=== PATIENT | female | born 1960 | race Caucasian/White ===

== ENCOUNTER 2021-02-16 12:40 | Outpatient (CLI) | payer BC, SELFPAY ==
--- NOTE | 2021-02-16 12:52 | MM_ITS ---
WS: [id number] BILATERAL DIGITAL SCREENING MAMMOGRAPHY WITH CAD CLINICAL INFORMATION: SCREEN HISTORY: Screening mammogram. No current complaints. COMPARISON: February 15, 2020 TECHNIQUE: Bilateral CC and MLO views. FINDINGS: The breasts are composed of heterogeneous fibroglandular density tissue, which can limit the detectio n of small underlying mass lesions. A few tiny stable punctate calcifications. No suspicious mass, as ymmetry, calcifications, or architectural distortion. No evidence of malignancy. MM/[place] [id number] IMPRESSION: BI-RADS: 2-Benign FOLLOW UP: 1 Year Follow-up Recommend return to annual screening mammography.
== END 2021-02-16 12:41 | disposition home or self-care (01) ==
LOC: RADSHAW 12:44
PROVIDERS: PCP Family Medicine; Visit Provider Family Medicine
DX: Z12.31 Encounter for screening mammogram for malignant neoplasm of breast (principal)
CPT/HCPCS: 77067

== ENCOUNTER 2022-04-24 14:09 | Outpatient (CLI) | payer BC, SELFPAY ==
--- NOTE | 2022-04-24 14:21 | MM_ITS ---
WS: [id number] BILATERAL 3D TOMOSYNTHESIS DIGITAL SCREENING MAMMOGRAPHY WITH CAD CLINICAL INFORMATION: SCREENING HISTORY: Screening mammogram. No current complaints. COMPARISON: 2020 TECHNIQUE: Bilateral CC and MLO views. FINDINGS: The breasts are composed of heterogeneous fibroglandular density tissue, which can limit the detectio n of small underlying mass lesions. No suspicious mass, asymmetry, calcifications, or architectural d istortion. No evidence of malignancy. Incidental punctate calcifications. Vascular calcification. MM/[place] [id number] IMPRESSION: BI-RADS: 2-Benign FOLLOW UP: 1 Year Follow-up Recommend return to annual screening mammography.
--- NOTE | 2022-04-24 14:28 | XR_ITS ---
WS: [id number] DEXA (DUAL ENERGY X-RAY ABSORPTIOMETRY) Bone mineral density was performed using a [id number] machine. HISTORY: BONE DENSITY COMPARISON: None available. Lumbar spine BMD (L1-L4): 0.959 g/cm2 T score: -1.8 Z score: -0.4 Total hip BMD: Left: 0.834 g/cm2. T score: -1.4 Z score: -0.3 Right: 0.809 g/cm2. T score: -1.6 Z score: -0.5 10 year probability of a major osteoporotic fracture is 9.4%. XR/XR DEXA axial skeleton* [id number] IMPRESSION: OSTEOPENIA based upon the WHO classification for females.
== END 2022-04-24 14:10 | disposition home or self-care (01) ==
LOC: RAD 14:10
PROVIDERS: PCP Family Medicine; Visit Provider Family Medicine
DX: Z12.31 Encounter for screening mammogram for malignant neoplasm of breast (principal); M81.0 Age-related osteoporosis without current pathological fracture
CPT/HCPCS: 77063; 77067; 77080

== ENCOUNTER 2022-08-06 07:23 | Outpatient (CLI) | payer BC, SELFPAY ==
--- NOTE | 2022-08-06 07:55 | US_ITS ---
WS: [id number] RENAL ULTRASOUND HISTORY: STAGE 3A CHRONIC KIDNEY DZ COMPARISON: None available. TECHNIQUE: 2-D and color Doppler imaging of the kidney submitted. Right kidney: 9.2 cm x 5.0 cm x 4.1 cm. Cortex: 1.0 cm Normal echogenicity with no hydronephrosis or mass. Left kidney: 9.2 cm x 3.9 cm x 4.5 cm. Cortex: 1.2 cm Normal echogenicity with no hydronephrosis or mass. Aorta: Normal. Urinary Bladder: Normal distention. US/US renal BI* [id number] IMPRESSION: 1. Normal size kidneys. No renal atrophy. 2. No hydronephrosis.
== END 2022-08-06 07:24 | disposition home or self-care (01) ==
LOC: RAD 07:27
PROVIDERS: PCP Family Medicine; Visit Provider Internal Medicine Nephrology
DX: N18.31 Chronic kidney disease, stage 3a (principal)
CPT/HCPCS: 76770

== ENCOUNTER 2023-03-08 14:10 | Emergency (ER) | payer BC, SELFPAY ==
[2023-03-08 14:53] VITALS: BP 122/83; PULSE 70; RESP 18; TEMP 36.3; O2SAT 98; BMI 26.4
[2023-03-08 15:23] LABS: Basophils # 0.1 10^3/uL (0.0-0.1); Basophils % 0.5 %; Eosinophils # 0.1 10^3/uL (0.0-0.8); Eosinophils % 0.9 %; Hematocrit 38.7 % (36-47); Lymphocytes # 2.1 10^3/uL (0.8-4.8); Lymphocytes % 15.8 %; Mean Corpuscular HGB Conc 32.3 g/dL (30-55); Mean Corpuscular Hemoglobin 30.4 pg (27-33); Mean Corpuscular Volume 94.2 fl (85-98); Mean Platelet Volume 11.7 fL (7.4-10.4); Monocytes # 0.9 10^3/uL (0.2-0.9); Monocytes % 6.6 %; Neutrophils # 9.89 10^3/uL (1.8-7.7); Neutrophils % 75.7 %; Nucleated Red Blood Cells % 0 %; Platelet Count 224 10^3/cmm (157-399); Red Blood Count 4.11 10^6/uL (3.85-5.65); Red Cell Distribution Width 13.5 % (12.1-15.1); White Blood Count 13.05 10^3/uL (3.29-11.43)
[2023-03-08 15:43] LABS: Alanine Aminotransferase 34 U/L (0-33); Albumin Level 4.2 g/dL (3.5-5.2); Alkaline Phosphatase 79 U/L (35-105); Anion Gap 15.7 (5-19); Aspartate Amino Transferase 23 U/L (0-32); Blood Urea Nitrogen 21 mg/dL (8-23); Calcium 10.6 mg/dL (8.5-10.5); Carbon Dioxide 26 mmol/L (22-29); Chloride 101 mmol/L (98-107); Glomerular Filtration Rate 38.1 mL/min (90-130); Glucose 125 mg/dL (65-115); Lipase 88 U/L (13-60); Osmolality Calculated 292 mOsm/kg (285-295); Potassium 3.7 mmol/L (3.5-5.1); Sodium 139 mmol/L (136-145); Total Bilirubin 0.4 mg/dL (0.15-1.2); Total Protein 7.2 g/dL (6.6-8.7)
--- NOTE | 2023-03-08 20:03 | XRR_ITS ---
PROCEDURE INFORMATION: Exam: XR Abdomen Exam date and time: 03/08/2023 8:10 PM Age: 62 years old Clinical indication: Nausea and vomiting; Abdominal pain; Localized; Prior surgery; Surgery date: 6+ months; Surgery type: Hysterectomy; Patient HX: C/O lower abd pain with n/v. TECHNIQUE: Imaging protocol: Radiologic exam of the abdomen. Views: Frontal supine view of the abdomen. 1 View. COMPARISON: US renal BI* [id number] 08/06/2022 8:10 AM FINDINGS: Gastrointestinal tract: No dilated loops of bowel. [id number] colonic stool burden. Bones/joints: No acute abnormality. XR/XR KUB portable [id number] IMPRESSION: No dilated loops of bowel.
--- NOTE | 2023-03-08 20:38 | W.ED.ABDPA2 ---
HPI - Abdominal Pain General: Chief Complaint: Abdominal Pain Stated Complaint: abd pain Time Seen by Provider: 03/08/23 19:52 History of Present Illness: 62-year-old female with a history of IBS. She presents with abdominal pain and cramping much worse than her normal. Symptoms started this morning. They have since essentially resolved. No fever. No vomiting. She had some nausea which is also resolved. She was able to use the restroom several times in the waiting room, which she believes led to the resolution of her symptoms. No sick contacts. No blood in the stool. Associated Symptoms: Denies chills, fever(s), hematochezia and vomiting Review of Systems Const: Denies: fever(s), chills or body aches Eyes: Denies: change in vision Card: Denies: chest pain or palpitations Resp: Denies: dyspnea, productive cough, non-productive cough or wheezing GI: Denies: vomiting or hematochezia : Denies: difficulty voiding Skin/Breast: Denies: rash Neuro: Denies: headache(s), weakness in extremities, dizziness or confusion Physical Exam Const: COMMON NORMALS: no acute distress GENERAL APPEARANCE: cooperative; not ill appearing and not frail appearing HENMT: COMMON NORMALS: normocephalic, atraumatic and Normal external nose present HEAD & SCALP: normocephalic and atraumatic FACE & SINUS: normal facial exam and face symmetric NOSE: Normal external nose present Eye: COMMON NORMALS: Equal, round and reactive pupils present and EOMs intact bilaterally PUPIL: Yes Equal, round and reactive pupils present Neck/C-Spine: GENERAL: Yes trachea midline Chest: CHEST: Yes Symmetrical chest wall rise Resp: COMMON NORMALS: normal respiratory effort, No retractions, No use of accessory muscles and clear to auscultation bilaterally AUSCULTATION: clear to auscultation bilaterally Cardio: COMMON NORMALS: regular rate and regular rhythm RATE: regular rate RHYTHM: regular rhythm GI: COMMON NORMALS: Normal to inspection, nondistended, normoactive bowel sounds present Extremity: COMMON NORMALS: no pedal edema Neuro: JORGE A COMA SCALE: document GCS findings [place] coma scale eye opening: Spontaneous [place] coma scale verbal response: Orientated [place] coma scale motor response: Obey commands Jorge A coma scale total score: 15 SENSORY EXAM: Yes extremities (intact) Psych: COMMON NORMALS: speech normal SPEECH: Yes normal speech Skin: COMMON NORMALS: no rashes or lesions noted GENERAL SKIN EXAM: no rashes or lesions noted Course Vital Signs: Vital signs: Vital Signs Temperature 97.3 F L 03/08/23 14:53 Pulse Rate 74 03/08/23 21:49 Respiratory Rate 16 03/08/23 21:49 Blood Pressure 122/83 03/08/23 14:53 Pulse Oximetry 98 03/08/23 21:49 Oxygen Delivery Me thod Room Air 03/08/23 14:53 MDM - Abdominal Pain Medical Decision Making 62-year-old female with resolved belly pain. White blood cell count is 13 without left shift. Creatinine is 1.4 which is a chronic finding for her. Lipase is 88. Her belly is nontender. She has no distention, rigidity, or bed shake tenderness.KUB shows no obstruction. Awaiting urinalysis. Urinalysis shows mild urinary tract infection. Will elect to go ahead and treat. Will use Macrobid, so has not to increased risk for antibiotic associated diarrhea given other complaints. Uncertain whether this urinalysis finding has bearing on her presenting complaint, as it seems to be resolved. Close outpatient follow-up. Return for any worsening symptoms. Lab Data 03/08/23 15:12 03/08/23 15:12 Labs/Radiology: Radiology Impressions KUB X-Ray 03/08/23 20:03 IMPRESSION: No dilated loops of bowel. Laboratory Results WBC 13.05 10^3/uL (3.29-11.43) H 03/08/23 15:12 RBC 4.11 10^6/uL (3.85-5.65) 03/08/23 15:12 Hgb 12.50 g/dL (11.27-16.99) 03/08/23 15:12 Hct 38.7 % (36-47) 03/08/23 15:12 MCV 94.2 fl (85-98) 03/08/23 15:12 MCH 30.4 pg (27-33) 03/08/23 15:12 MCHC 32.3 g/dL (30-55) 03/08/23 15:12 RDW 13.5 % (12.1-15.1) 03/08/23 15:12 Plt Count 224 10^3/cmm (157-399) 03/08/23 15:12 MPV 11.7 fL (7.4-10.4) H 03/08/23 15:12 Neut % (Auto) 75.7 % 03/08/23 15:12 Lymph % (Auto) 15.8 % 03/08/23 15:12 [place] % (Auto) 6.6 % 03/08/23 15:12 Eos % (Auto) 0.9 % 03/08/23 15:12 Baso % (Auto) 0.5 % 03/08/23 15:12 Neut # (Auto) 9.89 10^3/uL (1.8-7.7) H 03/08/23 15:12 Lymph # (Auto) 2.1 10^3/uL (0.8-4.8) 03/08/23 15:12 [place] # (Auto) 0.9 10^3/uL (0.2-0.9) 03/08/23 15:12 Eos # (Auto) 0.1 10^3/uL (0.0-0.8) 03/08/23 15:12 Baso # (Auto) 0.1 10^3/uL (0.0-0.1) 03/08/23 15:12 Nucleated RBC % (auto) 0 % 03/08/23 15:12 Nucleated RBCs # 0.0 /100WBC 03/08/23 15:12 Sodium 139 mmol/L (136-145) 03/08/23 15:12 Potassium 3.7 mmol/L (3.5-5.1) 03/08/23 15:12 Chloride 101 mmol/L (98-107) 03/08/23 15:12 Carbon Dioxide 26 mmol/L (22-29) 03/08/23 15:12 Anion Gap 15.7 (5-19) 03/08/23 15:12 BUN 21 mg/dL (8-23) 03/08/23 15:12 Creatinine 1.4 mg/dL (0.5-0.9) H 03/08/23 15:12 GFR Calculation 38.1 mL/min (90-130) L 03/08/23 15:12 Glucose 125 mg/dL (65-115) H 03/08/23 15:12 Calculated Osmolality 292 mOsm/kg (285-295) 03/08/23 15:12 Calcium 10.6 mg/dL (8.5-10.5) H 03/08/23 15:12 Total Bilirubin 0.4 mg/dL (0.15-1.2) 03/08/23 15:12 AST 23 U/L (0-32) 03/08/23 15:12 ALT 34 U/L (0-33) H 03/08/23 15:12 Alkaline Phosphatase 79 U/L (35-105) 03/08/23 15:12 Total Protein 7.2 g/dL (6.6-8.7) 03/08/23 15:12 Albumin 4.2 g/dL (3.5-5.2) 03/08/23 15:12 Globulin 3.0 g/dL (1.3-4.6) 03/08/23 15:12 Lipase 88 U/L (13-60) H 03/08/23 15:12 Urine Color Yellow (Yellow) 03/08/23 20:37 Urine Appearance Hazy (CLEAR) A 03/08/23 20:37 Urine pH 7 (5-7) 03/08/23 20:37 Ur Specific [place] 1.015 (1.005-1.030) 03/08/23 20:37 Urine Protein Trace (Negative) 03/08/23 20:37 Urine Glucose (UA) Norm (Normal) 03/08/23 20:37 Urine Ketones Negative (Negative) 03/08/23 20:37 Urine Blood Neg (Negative) 03/08/23 20:37 Urine Nitrate Negative (Negative) 03/08/23 20:37 Urine Bilirubin Neg (Negative) 03/08/23 20:37 Urine Urobilinogen Neg mg/dL (Negative) 03/08/23 20:37 Ur Leukocyte Esterase 2+ (Negative) H 03/08/23 20:37 Urine RBC 0-4 /hpf (0-2) H 03/08/23 20:37 Urine WBC 5-10 /hpf (0-5) H 03/08/23 20:37 Ur Squamous Epith Cells Rare /hpf (0-5) 03/08/23 20:37 Amorphous Sediment 3+ /hpf 03/08/23 20:37 Urine Bacteria Trace /hpf (NONE) 03/08/23 20:37 All radiology interpretation(s) finalized by discharge Discharge Plan Discharge Patient Disposition: Home Clinical Impression: Abdominal pain, UTI (urinary tract infection) Condition: Stable Prescriptions: New Macrobid 100 mg capsule 100 mg PO BID 7 Days Qty: 14 0RF Rx Instructions: must administer with a meal/food Discharge Orders: Discharge ED (Routine); Ordered 03/08/23 Ordered By: Kwan Rodriguez Referrals: Christina Archer DO [Primary Care Provider] - 1-3 days Patient Instructions: Urinary Tract Infection in Women (ED), Abdominal Pain (ED), Opioid Safety, Pain Management Activity Restrictions/Additional Instructions: Return for return of pain, blood in the stool, excessive diarrhea, vomiting liquids, other concerning symptoms. Medication as directed. See your doctor next week. You should have a repeat urine test next week to determine that infection has been eradicated. Coding Level of Care Code ED Shredded Filler Cutter Operator for Howard Miranda
[2023-03-08 21:03] LABS: Add Urine Microscopic? YES; Bilirubin Urine Neg (Negative); Blood Urine Neg (Negative); Glucose Urine UA Norm (Normal); Ketones Urine Negative (Negative); Leukocyte Esterase Urine 2+ (Negative); Nitrate Urine Negative (Negative); Protein Urine Trace (Negative); Specific Gravity, Urine 1.015 (1.005-1.030); Urine Appearance Hazy (CLEAR); Urine Color Yellow (Yellow); Urobilinogen Urine Neg (Negative); pH Urine 7 (5-7)
[2023-03-08 21:04] LABS: Add Urine Culture? No; Amorphous Sediment Urine 3+ /hpf; Bacteria Urine TRACE /hpf; RBC Urine 0-4 /hpf (0-2); Squamous Epithelial Cell Urine RARE /hpf (0-5)
[2023-03-08] MEDS: nitrofurantoin SR (BID) 100 mg Capsule PO (21:45)
[2023-03-08 21:49] VITALS: PULSE 74; RESP 16; O2SAT 98
== END 2023-03-08 21:47 | disposition home or self-care (01) ==
PROVIDERS: Nurse Practitioner Family; Emergency Provider Emergency Medicine; PCP Family Medicine
DX: N39.0 Urinary tract infection, site not specified (principal)
CPT/HCPCS: 74018; 80053; 81001; 83690; 85025; 99284

== ENCOUNTER 2023-06-04 08:41 | Outpatient (CLI) | payer BC, SELFPAY ==
--- NOTE | 2023-06-04 08:43 | MM_ITS ---
WS: [email or web address] VIEWS: MLO and CC views both breasts. 3D digital tomosynthesis is also included in this exam. Comparison made with prior exam of 01/25/2015, 02/07/2016, 02/16/2021, 04/24/2022.. Findings: There was no sign of mass, architectural distortion or suspicious calcification in either breast. The breasts are heterogeneously dense which may obscure small masses Impression: MM/[place] [id number] BI-RADS: 2-Benign finding. FOLLOW-UP: 1 Year Follow-up This mammogram was also analyzed by the Computer Aided Detection System R2 Imag e [place] Mixer Operator.
== END 2023-06-04 08:42 | disposition home or self-care (01) ==
LOC: RAD 08:41
PROVIDERS: PCP Family Medicine; Visit Provider Family Medicine
DX: Z12.31 Encounter for screening mammogram for malignant neoplasm of breast (principal)
CPT/HCPCS: 77063; 77067

== ENCOUNTER 2024-06-24 09:27 | Outpatient (CLI) | payer BC, SELFPAY ==
--- NOTE | 2024-06-24 09:20 | MM_ITS ---
WS: [email or web address] BILATERAL SCREENING DIGITAL TOMOSYNTHESIS MAMMOGRAM WITH CAD HISTORY: SCREENING COMPARISON: 06/04/2023, 04/24/2022, 02/16/2021 Bilateral CC and MLO views with tomosynthesis and synthetic mammography submitted. Computer aided detection analyzed. Breast composition: The breasts are heterogeneously dense, which may obscure small masses. No suspicious masses, microcalcifications or architectural distortion. Benign calcifications scattered within the LEFT breast. MM/MM [facility] tomosynthesis [id number] IMPRESSION: BI-RADS: 2 - Benign FOLLOW UP: 1 Year Follow-up
== END 2024-06-24 09:28 | disposition home or self-care (01) ==
LOC: MOBLMAM 09:34
PROVIDERS: PCP Nurse Practitioner Family; Visit Provider Nurse Practitioner Family
DX: Z12.31 Encounter for screening mammogram for malignant neoplasm of breast (principal); R92.333 Mammographic heterogeneous density, bilateral breasts; R92.1 Mammographic calcification found on diagnostic imaging of breast
CPT/HCPCS: 77063; 77067

== ENCOUNTER 2024-06-30 15:21 | Outpatient (CLI) | payer BC, SELFPAY ==
--- NOTE | 2024-06-30 15:25 | XR_ITS ---
WS: [email or web address] SCREENING DEXA SCAN [employer] CLINICAL INFORMATION: OSTEOPOROSIS COMPARISON: 2022 FINDINGS: The L1-L4 bone mineral density measures 0.951 g/cm2. This corresponds to a T score score of -1.9 and Z score of -0.2. Left femoral neck bone mineral density measures 0.807 g/cm2. This corresponds to a T score of -1.6 and Z score of -0.3. Right femoral neck bone mineral density measures 0.797 g/cm2. This corresponds to a T score -1.7of and Z score of -0.4. Mean femoral neck bone mineral density measures 0.802 g/cm2. This corresponds to a T score of -1.6 and Z score of -0.4. XR/XR DEXA axial skeleton* [id number] IMPRESSION: Osteopenia lumbar spine. Osteopenia femoral necks. Patient's FRAX calculated 10 year probability for major osteoporotic fracture i s 10.2% and osteoporotic hip fracture is 1.4%. Bone mineral density lumbar spine decreased -0.8% Bone mineral density femoral necks decreased -2.4%
== END 2024-06-30 15:22 | disposition home or self-care (01) ==
PROVIDERS: PCP Nurse Practitioner Family; Visit Provider Nurse Practitioner Family
DX: M85.89 Other specified disorders of bone density and structure, multiple sites (principal)
CPT/HCPCS: 77080

== ENCOUNTER 2024-07-29 08:38 | Outpatient (CLI) | payer BC, SELFPAY ==
[2024-07-29 09:31] LABS: Basophils # 0.1 10^3/uL (0.0-0.1); Basophils % 0.7 %; Eosinophils # 0.2 10^3/uL (0.0-0.8); Eosinophils % 2.6 %; Hematocrit 41.3 % (36-47); Lymphocytes # 2.9 10^3/uL (0.8-4.8); Lymphocytes % 38.3 %; Mean Corpuscular Hemoglobin 29.6 pg (27-33); Mean Corpuscular Volume 92.6 fl (85-98); Mean Platelet Volume 11.9 fL (7.4-10.4); Monocytes # 0.8 10^3/uL (0.2-0.9); Monocytes % 10.3 %; Neutrophils # 3.67 10^3/uL (1.8-7.7); Neutrophils % 47.8 %; Nucleated Red Blood Cells % 0 %; Platelet Count 211 10^3/cmm (157-399); Red Blood Count 4.46 10^6/uL (3.85-5.65); Red Cell Distribution Width 13.3 % (12.1-15.1); White Blood Count 7.66 10^3/uL (3.29-11.43)
[2024-07-29 09:56] LABS: Albumin Level 4.2 g/dL (3.5-5.2); Anion Gap 13.6 (5-19); Blood Urea Nitrogen 16 mg/dL (8-23); Calcium 9.8 mg/dL (8.5-10.5); Carbon Dioxide 26 mmol/L (22-29); Chloride 103 mmol/L (98-107); Glomerular Filtration Rate 50.2 mL/min (90-130); Glucose 93 mg/dL (65-115); Phosphorus 3.1 mg/dL (2.5-4.5); Potassium 3.6 mmol/L (3.5-5.1); Sodium 139 mmol/L (136-145)
[2024-07-29 10:03] LABS: Parathyroid Hormone 33.1 pg/mL (15-65)
[2024-07-29 10:11] LABS: Creatinine Urine, Random 24 mg/dL (28-217); Microalbumin Random Urine 1 ug/dL (0-20)
[2024-07-29 10:12] LABS: 25 Hydroxy Vitamin D 48 ng/mL (30-100)
[2024-07-29 10:23] LABS: Microalbum Creatinine Ratio Ur 42 mg/dL (0-20)
== END 2024-07-29 08:39 | disposition home or self-care (01) ==
PROVIDERS: PCP Nurse Practitioner Family; Visit Provider Nurse Practitioner
DX: N25.81 Secondary hyperparathyroidism of renal origin (principal); N18.2 Chronic kidney disease, stage 2 (mild)
CPT/HCPCS: 80069; 82044; 82306; 82310; 83970; 85025

== ENCOUNTER 2024-08-10 08:17 | Outpatient (CLI) | payer BC, SELFPAY ==
[2024-08-10 09:10] LABS: Creatinine Urine, Random 15 mg/dL (28-217); Microalbumin Random Urine 1 ug/dL (0-20)
[2024-08-10 09:11] LABS: Microalbum Creatinine Ratio Ur 67 mg/dL (0-20)
== END 2024-08-10 08:18 | disposition home or self-care (01) ==
PROVIDERS: PCP Nurse Practitioner Family; Visit Provider Registered Nurse
DX: N18.31 Chronic kidney disease, stage 3a (principal)
CPT/HCPCS: 82044